=== PATIENT | female | born 1970 | race Caucasian/White ===

== ENCOUNTER 2020-10-05 15:49 | Outpatient (RCR) | payer BC, SELFPAY ==
[2020-10-05] MEDS: COVID-19 VACC, MRNA(PFIZER)/PF 30 MCG/0.3 ML SYRINGE IM (14:42)
[2020-10-26] MEDS: COVID-19 VACC, MRNA(PFIZER)/PF 30 MCG/0.3 ML SYRINGE IM (14:34)
== END 2020-10-05 23:59 ==
LOC: IMMUN 15:49
PROVIDERS: PCP Internal Medicine; Referring Provider Family Medicine; Visit Provider Family Medicine
DX: Z23 Encounter for immunization (principal)
CPT/HCPCS: 0001A; 0002A; 91300

== ENCOUNTER → 2024-10-20 | Outpatient (CLI) | payer OTHER, SELFPAY ==
--- NOTE | 2024-10-20 16:05 | RAD_ITS ---
EXAM: Femur minimum two views CLINICAL HISTORY: Hip pain COMPARISON: None available TECHNIQUE: Two views left femur, 4 total images to include the entire femur FINDINGS: No fracture or left hip dislocation. No osseous lesion identified. The soft tissues appear within limits. RAD/Femur Min 2 Views IMPRESSION: Study appears within limits. Reading Location: [id number]
== END | disposition home or self-care (01) ==
PROVIDERS: PCP Internal Medicine; Referring Provider Anesthesiology Pain Medicine; Visit Provider Anesthesiology Pain Medicine
DX: M25.552 Pain in left hip (principal)
CPT/HCPCS: 73552